=== PATIENT | male | born 1995 | race Caucasian/White ===

== ENCOUNTER 2018-03-10 13:18 | Emergency (ER) | payer OTHER ==
[2018-03-10 13:55] VITALS: TEMP 98.2; BMI 19.9
[2018-03-10 14:18] LABS: BASO % 0.9 % (0-2.0); EOS % 2.1 % (0-4.5); HEMATOCRIT 43.2 % (35.4-49); HEMOGLOBIN 14.4 GM/dl (11.7-16.9); LYMPH % 26.5 % (8-40); MCH 26.5 pg (25.7-33.7); MCHC 33.4 g/dl (32.0-35.9); MEAN CELL VOLUME 79.4 fl (80-96); MONO % 15.7 % (3.8-10.2); NEUT % 54.8 % (42.8-82.8); PLATELET COUNT 248 K/MM3 (134-434); RBC 5.44 M/mm3 (4.00-5.60); RDW 12.9 % (11.9-15.9); WHITE BLOOD COUNT 3.2 K/mm3 (4.0-10.8)
--- NOTE | 2018-03-10 14:31 | PDOC ---
History of Present Illness - General Chief Complaint: Psychiatric Stated Complaint: CONFUSED Time Seen by Provider: 03/10/18 13:21 History Source: Patient Exam Limitations: No Limitations - History of Present Illness Initial Comments: 03/10/18 14:25 22 yo male with h/o anxiety depression here with parents for concerns for AMS. per his parents he has been acting confused and extremely anxious. difficulty answering simple questions. d/w psychiatrist who was concerned for possible serotonin syndrome. denies ingestion. no thoughts of self harm , denies auditory hallucinations. denies taking meds more than prescribed however is having difficulty answering questions. states" he doesnt feel well" denies other drug use. Past History - Past Medical History Allergies/Adverse Reactions: Allergies Allergy/AdvReac Type Severity Reaction Status Date / Time No Known Allergies Allergy Verified 03/10/18 13:22 Home Medications: Ambulatory Orders Fluvoxamine Maleate [Fluvoxamine Maleate ER] 300 mg PO HS 03/10/18 COPD: No - Surgical History Appendectomy: Yes - Suicide/Smoking/Psychosocial Hx Smoking History: Never smoked Have you smoked in the past 12 months: No Information on smoking cessation initiated: No Hx Alcohol Use: No Drug/Substance Use Hx: No Substance Use Type: None Review of Systems - Review of Systems Constitutional: No: Chills, Diaphoresis HEENTM: No: Blurred Vision Respiratory: No: Orthopnea Cardiac (ROS): No: Chest Pain ABD/GI: No: Abdominal Distended Musculoskeletal: No: Back Pain Integumentary: No: Bruising, Change in Color Neurological: Yes: Tremors, Other Psychiatric: Yes: Anxiety, Depression All Other Systems: Reviewed and Negative *Physical Exam - Vital Signs Last Vital Signs Temp Pulse Resp BP Pulse Ox 98.2 F 81 20 128/90 99 03/10/18 13:18 03/10/18 13:18 03/10/18 13:18 03/10/18 13:18 03/10/18 13:18 - Physical Exam Comments: 03/10/18 14:31 awake alert , anxious. head atraumatic. perrl 2 --1. lungs clear bilaterally heart tachycardia no mrg. abd soft nt nd. aud bowel sounds ext wwp no edema. no calf tenderness. skin warm dry no rash. no eccymosis. psych pt appears anxious, denies si hi ah. mild tremove. no clonus. Heart Score/ECG Review #1 ECG reviewed & interpreted by me at: 14:55 General ECG Interpretation: Sinus Rhythm, Normal Rate (70), Normal Intervals, No acute ischemic changes ED Treatment Course - LABORATORY CBC & Chemistry Diagram: 03/10/18 14:05 03/10/18 14:05 - ADDITIONAL ORDERS Additional order review: 03/10/18 14:05 RBC 5.44 MCV 79.4 L MCHC 33.4 RDW 12.9 MPV 8.0 Neutrophils % 54.8 Lymphocytes % 26.5 Monocytes % 15.7 H Eosinophils % 2.1 Basophils % 0.9 Medical Decision Making - Medical Decision Making 03/10/18 14:34 differential diagnosis AMS: overdose, traumatic injury although no sx of trauma. anxiety, early psychosis, serotonin syndrome although vs do not support this. plan albs tox, ekg ct head. anxiolytics with benzos nurse called pharmacy, pt has been taking meds ass prescribed, has sufficient amounts left in bottle. [facility] he took two tylenol yesterday evening denies other meds. additional history per his father, pt was supposed to meet friends for dinner in [facility] last evening. never showed up.. got to [place], and was missing until he turnd up in [place] later in the evening. can not say what happened. 03/10/18 14:53 d/w pt psychiatrist dr. Shreya Spann [phone], [facility] has been treating pt for many years, spoke to him onthe phone and felt he seemed more confused. states he was not taking meds as prescribed, and didnt increased dose as directed, may have then recently been doubling up on meds over last few days. recommend admission. observation for confusion, aMS no fever, wbc mild low, otherwise normal. mild hypokalemia other normal electrolyte cpk 360. ekg with RBB, other no acute changes. 03/10/18 16:27 on reevalatuion pt no very lucid. forthcoming with what happened last night report smoking weed recently with vap oils. now at baseline, seems calmer. will dc home. d/w pt psychiatrist. *DC/Admit/Observation/Transfer Diagnosis at time of Disposition: Altered mental status, Substance use disorder - Discharge Dispostion Disposition: HOME Condition at time of disposition: Improved Decision to Admit order: No - Referrals - Patient Instructions Printed Discharge Instructions: Generalized Anxiety Disorder Additional Instructions: you should follow up with your psychiatrist this week. call tomorrow to schedule. return for any thoughts of self harm or harm to others. you should take your medication as prescribed. you should avoid all smoking of any substances as they can have negative affects and contribute to your anxiety. - Post Discharge Activity
[2018-03-10 14:34] LABS: ALBUMIN 4.7 g/dl (3.5-5.0); ALK PHOS 59 U/L (32-92); ANION GAP 8 MMOL/L (8-16); BILIRUBIN,TOTAL 0.7 mg/dl (0.2-1.0); BLOOD UREA NITROGEN 10 mg/dl (7-18); CALCIUM 9.6 mg/dl (8.4-10.2); CHLORIDE 101 mmol/L (98-107); CO2 29 mmol/L (22-28); GLUCOSE,RANDOM 123 mg/dl (74-106); POTASSIUM 3.4 mmol/L (3.5-5.1); SGOT/AST 34 U/L (10-42); SGPT/ALT 35 U/L (10-40); SODIUM 138 mmol/L (136-145); TOT PROT 7.5 g/dl (6.4-8.3)
[2018-03-10] MEDS ORDERED: LORazepam 2 MG/ML SDV VIAL ONE (14:34)
[2018-03-10 14:57] LABS: VENOUS PC02 52.7 mmHg (38-52); VENOUS PH 7.37 (7.32-7.42); VENOUS PO2 33.9 mmHg (28-48)
[2018-03-10 15:21] LABS: COCAINE, UR NEGATIVE ng/ml (CUTOFF=300); METHADONE, UR NEGATIVE ng/ml (CUTOFF=300); OPIATES, URI NEGATIVE ng/ml (CUTOFF=300); PHENCYCLIDINE,URINE NEGATIVE ng/ml (CUTOFF=25); URINE AMPHETAMINES NEGATIVE ng/ml (CUTOFF=500); URINE BARBITURATES NEGATIVE ng/ml (CUTOFF=200); URINE BENZODIAZEPINES NEGATIVE ng/ml (CUTOFF=200)
[2018-03-10 16:46] VITALS: BP 121/84; PULSE 71
--- NOTE | 2018-03-11 21:32 | EKG ---
Test Reason : Blood Pressure : / mmHG Vent. Rate : 070 BPM Atrial Rate : 070 BPM P-R Int : 116 ms QRS Dur : 104 ms QT Int : 390 ms P-R-T Axes : 077 086 074 degrees QTc Int : 421 ms NORMAL SINUS RHYTHM INCOMPLETE RIGHT BUNDLE BRANCH BLOCK BORDERLINE ECG NO PREVIOUS ECGS AVAILABLE Confirmed by DO TODD, DANIEL ([id number]) on 03/11/2018 9:32:33 PM Referred By: LETICIA JAIN Confirmed By:DANIEL LEI MD
== END 2018-03-10 16:50 | disposition home or self-care (01) ==
LOC: FER 13:18
PROC: 3E033NZ Introduction of Analgesics, Hypnotics, Sedatives into Peripheral Vein, Percutaneous Approach (ICD-10-PCS; principal; 2018-03-10)
DX: R41.82 Altered mental status, unspecified (principal); F19.10 Other psychoactive substance abuse, uncomplicated
CPT/HCPCS: 36415; 80053; 80307; 82550; 82553; 82803; 85025; 93005; 99283-25